=== PATIENT | male | born 1975 | race Hispanic/Latino ===

== ENCOUNTER 2017-10-03 17:07 | Emergency (ER) | payer OTHER ==
[~2017-10-03] VITALS: Ht 182.9 cm; Wt 106.6 kg
[~2017-10-03 17:07] MED LIST: CIALIS20 MG PO; FLEXERIL 5MG TAB5 MG PO; MOTRIN 600 MG600 MG PO; MOTRIN800 MG PO; NORCO 325 MG-51 TAB PO
[2017-10-03 17:42] VITALS: BP 171/75
[2017-10-03 18:02] LABS: ABSOLUTE BASOPHIL COUNT 0 /CUMM (0.0-0.2); ABSOLUTE EOSINOPHIL COUNT 0.2 /CUMM (0.0-0.7); ABSOLUTE LYMPH COUNT 2.8 /CUMM (1.2-3.4); ABSOLUTE MONOCYTE COUNT 0.8 /CUMM (0.10-0.60); BASOPHIL % 0.3 % (0.0-2.0); EOSINOPHIL % 1.5 % (0-5); GRANULOCYTE % 67.8 % (42.2-75.2); HEMATOCRIT 42.4 % (42-52); MEAN CORPUSCULAR HGB 30.5 PG (27.0-31.0); MEAN CORPUSCULAR HGB CONC 33.2 G/DL (33.0-37.0); MEAN CORPUSCULAR VOLUME 91.8 FL (80.0-94.0); MEAN PLATELET VOLUME 8.8 FL (7.4-10.4); PLATELET COUNT 281 /CUMM (130-400); RBC DISTRIBUTION WIDTH 12.9 % (11.5-14.5); RED BLOOD CELL CT 4.62 /CUMM (4.70-6.10); WHITE BLOOD CELL COUNT 11.8 /CUMM (4.8-10.8)
--- NOTE | 2017-10-03 18:37 | ED INFLUENZA/URI COMPLAINT ---
History of Present Illness General Chief Complaint: Dyspnea (COPD, CHF, Other) Stated Complaint: CONGESTION, SOB, ANXIETY Source: patient Exam Limitations: no limitations Vital Signs & Intake/Output Vital Signs & Intake/Output Vital Signs Date Time Temp Pulse Resp B/P B/P Pulse O2 O2 Flow FiO2 Mean Ox Delivery Rate 10/03 1742 98.6 70 18 171/75 99 Room Air Allergies Coded Allergies: NO KNOWN ALLERGIES (10/05/14) Reconcile Medications Acetaminophen/Hydrocodone Bi ([place] 325 MG-5 MG) 1 TAB TAB 1 TAB PO Q6HR PRN PAIN Amoxicillin/Potassium Clav (Augmentin 875-125 Tablet) 875 MG-125 MG TABLET 1 TAB PO BID SINSUITIS Cyclobenzaprine (Flexeril 5MG Tab) 5 MG TAB 1 TAB PO TID PRN . Ibuprofen (Motrin 600 MG Tab) 600 MG TABLET 2 TAB PO PRN PAIN (Reported) Ibuprofen (Motrin) 800 MG TAB 1 TAB PO Q6HR PRN PAIN Methylprednisolone. (Medrol) 4 MG TAB.DS.PK 1 DP PO AD SINUSITIS 6 on day 1 then reduce by one tablet daily until gone Tadalafil (Cialis) 20 MG TABLET 1 TAB PO PRN SEXUAL HEALTH (Reported) Triage Note: RECEIVED 42 YO MALE C/O NASAL CONGESTION, SINUS PRESSURE AND SHORTNESS OF BREATH. PT ALSO REPORTS ANXIETY. SYMPTOMS X 4 TO 5 DAYS. O2 SATS 99% LUNGS CTA Triage Nurses Notes Reviewed? yes Onset: Abrupt Duration: week(s): (1), changing over time, continues in ED, getting worse Timing: single episode today Severity: mild, moderate Prior Episodes/Possible Cause: no prior episodes No Modifying Factors: none Associated Symptoms: cough, facial pain, headache, nasal congestion, nasal drainage, shortness of breath HPI: 42-year-old male past medical history of chronic back pain presents for evaluation of cough, congestion, rhinorrhea or sinus pressure and shortness of breath. Symptoms STARTED WITHIN THE past week. He reports sinus pressure in the bilateral maxillary sinuses and forehead. Shortness of breath present at rest does not get worse on exertion. Patient states that symptoms get worse at night and he has not slept for the past 3 nights due to cough, congestion and worsening sinus pressure. No chest pain hemoptysis or lower extremity edema. Patient does report that he is on testosterone replacement therapy. History of DVT no fever. No chest pain. No numbness or tingling. He has been using Afrin without much improvement. (Cuong Phan) Past History Travel History Traveled to [place] past 21 day No Medical History Any Pertinent Medical History? see below for history Neurological: NONE EENT: NONE Cardiovascular: NONE Respiratory: NONE Gastrointestinal: NONE Hepatic: NONE Renal: NONE Musculoskeletal: chronic back pain, osteoarthritis Psychiatric: NONE Endocrine: NONE Blood Disorders: NONE Cancer(s): NONE Surgical History Surgical History: non-contributory Psychosocial History What is your primary language Vietnamese Tobacco Use: Current Not Daily Family History Hx Contributory? No (Cuong Phan) Review of Systems Review of Systems Constitutional: Reports: no symptoms. EENTM: Reports: see HPI, nasal congestion, nasal pain, throat pain. Respiratory: Reports: see HPI, cough, short of breath. Cardiovascular: Reports: no symptoms. GI: Reports: no symptoms. Genitourinary: Reports: no symptoms. Musculoskeletal: Reports: no symptoms. Skin: Reports: no symptoms. Neurological/Psychological: Reports: no symptoms. Hematologic/Endocrine: Reports: no symptoms. Immunologic/Allergic: Reports: no symptoms. All Other Systems: Reviewed and Negative (Cuong Phan) Physical Exam Physical Exam General Appearance: well developed/nourished, no apparent distress, alert, awake Head: atraumatic, normal appearance Eyes: Bilateral: normal appearance, PERRL, EOMI. Ears, Nose, Throat: moist mucous membrane, hearing grossly normal, Tympanic normal, pharynx normal, nasal congestion, nasal drainage, MAXILLARY SINUSES AND FRONTAL SINUSES TENDER TO PALPATION BILATERALLY Neck: normal inspection, supple, full range of motion Respiratory: normal breath sounds, chest non-tender, no respiratory distress, lungs clear Cardiovascular: regular rate/rhythm, normal peripheral pulses Peripheral Pulses: 2+ radial (R), 2+ radial (L) Gastrointestinal: soft, non-tender Back: normal inspection, normal range of motion, no vertebral tenderness Extremities: normal inspection, normal range of motion, no edema Neurologic/Psych: no motor/sensory deficits, awake, alert, oriented x 3, normal gait Skin: intact, normal color, warm/dry Lymphatic: no anterior cervical krysten Core Measures Sepsis Present: No Sepsis Focused Exam Completed? No (Cuong Phan) Progress Differential Diagnosis: influenza, otitis, pneumonia, pharyngitis, sinusitis, PE , ACUTE BRONCHITIS Plan of Care: Orders Procedure Date/time Status TROPONIN LEVEL 10/03 1744 Complete D-DIMER 10/03 1744 Complete COMPREHENSIVE METABOLIC PANEL 10/03 1744 Complete CBC WITHOUT DIFFERENTIAL 10/03 1744 Complete Laboratory Tests 10/03/17 175: Anion Gap 13, Estimated GFR > 60, BUN/Creatinine Ratio 17.8, Glucose 112 H, Calcium 9.1, Total Bilirubin 1.5 H, AST 43, ALT 38, Alkaline Phosphatase 47, Troponin I < 0.01, Total Protein 7.6, Albumin 4.3, Globulin 3.3, Albumin/ Globulin Ratio 1.3, D-Dimer High Sensitivty < 200, CBC w Diff NO MAN DIFF REQ, RBC 4.62 L, MCV 91.8, MCH 30.5, MCHC 33.2, RDW 12.9, MPV 8.8, Gran % 67.8, Lymphocytes % 23.6, Monocytes % 6.8, Eosinophils % 1.5, Basophils % 0.3, Absolute Granulocytes 8.0 H, Absolute Lymphocytes 2.8, Absolute Monocytes 0.8 H, Absolute Eosinophils 0.2, Absolute Basophils 0 Patient seen and evaluated. He is reporting maxillary and frontal sinus pressure or congestion rhinorrhea shortness of breath over the past week that is gradually getting worse. He is on testosterone replacement therapy. Vital signs are stable he has a negative d-dimer remain blood work within normal limits. Patient be treated for a sinus infection with Augmentin and Medrol Dosepak. Advised him to use Benadryl at night to help him with congestion and insomnia. Apply warm compresses the sinuses. Flonase. Discontinue Afrin. Tylenol ibuprofen as needed for pain. Make a follow-up with her primary care doctor for recheck in a few days. Initial ED EKG: none (Cuong Phan) Departure Departure Disposition: HOME OR SELF CARE Condition: Stable Clinical Impression Primary Impression: Sinusitis Qualifiers: Sinusitis location: maxillary Chronicity: acute Recurrence: non- recurrent Qualified Code: J01.00 - Acute maxillary sinusitis, unspecified Referrals: Herb Slater MD Patient Has No Primary Care Dr (PCP/Family) Additional Instructions: Rest and drink plenty of fluids. Take antibiotics and steroids as directed for the full course. Tylenol ibuprofen as needed for pain Flonase for congestion. Saline nasal spray warm compresses over sinuses to reduce sinus pressure and pain. Benadryl for insomnia and congestion at nighttime this may cause drowsiness. Make a follow-up with your primary care doctor and provided ear nose and throat doctor as soon as possible. Monitor your symptoms return with any concerns. Departure Forms: Customer Survey General Discharge Information Prescriptions: Current Visit Scripts Amoxicillin/Potassium Clav (Augmentin 875-125 Tablet) 1 TAB PO BID #14 TAB Methylprednisolone. (Medrol) 1 DP PO AD #1 DP 6 on day 1 then reduce by one tablet daily until gone (Cuong Phan) PA/LEGAL REFEREE Co-Sign Statement Statement: ED Attending supervision documentation- [] I saw and evaluated the patient. I have also reviewed all the pertinent lab results and diagnostic results. I agree with the findings and the plan of care as documented in the PA's/LEGAL REFEREE's documentation. [X] I have reviewed the ED Record and agree with the PA's/LEGAL REFEREE's documentation. [] Additions or exceptions (if any) to the PAs/LEGAL REFEREE's note and plan are summarized below: [] (Gilmar ZUNIGA,Osiris) ED Attending Observation Initial Observation Note: I have seen and personally examined RODNEY BRAY I on 10/06/17 at 0925. I agree with the current emergency department documentation. The disposition (admission or discharge) is uncertain at this time, he needs a period of observation for the following reason(s): The ED Nurse caring for this patient has been personally informed as to what the patient is being observed for. (Cuong Phan)
[2017-10-03] MEDS ORDERED: AUGMENTIN 875-1 EACH PO (18:41)
[2017-10-03] MEDS ORDERED: MEDROL4 M2 PO (18:41)
== END 2017-10-03 18:58 ==
LOC: ERH 17:07
PROVIDERS: Physician Assistant Medical
DX: J32.9 Chronic sinusitis, unspecified (principal); F17.200 Nicotine dependence, unspecified, uncomplicated